=== PATIENT | female | born 1960 | race Caucasian/White ===

== ENCOUNTER 2018-12-06 09:10 | Emergency (ER) | payer MEDICAID ==
[2018-12-06 09:15] VITALS: BMI 37.2
--- NOTE | 2018-12-06 10:44 | ED PDOC ---
HPI: Back Time Seen by Provider: 12/06/18 09:42 Chief Complaint (Nursing): Back Pain Chief Complaint (Provider): Back Pain History Per: Patient History/Exam Limitations: no limitations Onset/Duration Of Symptoms: Other (1 MONTH) Quality Of Discomfort: Sharp (Bilateral) Additional Complaint(s): 58 y/o female presents to the ED complaining of lower back pain thats been ongoing for 1 month. Patient explains the pain as sharp bilaterally radiating anteriorally on to flanks. Patient was seen at [facility] and was started on Valium and Analgesic without relief. Patient has a prescription for CT abdominal and pelvis. Patient denies pain, GI symptoms, urinary symptoms, numbness down the legs, trauma, injuries, or any fevers. 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) Denies: Chronic Kidney Disease - Surgical History Surgical History: Cholecystectomy, Endoscopy - Family History Family History: States: Unknown Family Hx - Living Arrangements Living Arrangements: With Family - Social History Drugs: Denies - Home Medications Home Medications: Ambulatory Orders Medication Instructions Recorded Cholecalciferol (Vitamin D3) 1 cap PO QWK 03/28/16 [Vitamin D3] Levothyroxine [Synthroid] 1 tab PO DAILY 03/28/16 Losartan/Hydrochlorothiazide 1 tab PO DAILY 03/28/16 [Losartan-Hctz 50-12.5 mg Tab] Omeprazole 1 cap PO DAILY 03/28/16 Ibuprofen [Motrin Tab] 600 mg PO Q6 PRN #15 tab 12/06/18 Lidocaine 5% [Lidoderm] 1 ea TD DAILY PRN #5 patch 12/06/18 - Allergies Allergies/Adverse Reactions: Allergies Allergy/AdvReac Type Severity Reaction Status Date / Time acetaminophen [From Percocet] AdvReac VOMITING Verified 03/28/16 09:26 oxycodone HCl [From Percocet] AdvReac VOMITING Verified 03/28/16 09:26 Review of Systems ROS Statement: Except As Marked, All Systems Reviewed And Found Negative Constitutional: Negative for: Fever Musculoskeletal: Positive for: Back Pain Neurological: Negative for: Numbness Physical Exam - Reviewed Nursing Documentation Reviewed: Yes Vital Signs Reviewed: Yes - Physical Exam Appears: Positive for: Well, Non-toxic, No Acute Distress Head Exam: Positive for: ATRAUMATIC, NORMAL INSPECTION, NORMOCEPHALIC Skin: Positive for: Normal Color, Warm, DRY Eye Exam: Positive for: EOMI, Normal appearance, PERRL ENT: Positive for: Normal ENT Inspection Neck: Positive for: Normal, Painless ROM Cardiovascular/Chest: Positive for: Regular Rate, Rhythm. Negative for: Murmur Respiratory: Positive for: Normal Breath Sounds. Negative for: Wheezing Gastrointestinal/Abdominal: Positive for: Normal Exam, Soft. Negative for: Tenderness Back: Positive for: Normal Inspection, L CVA Tenderness, R CVA Tenderness, Other (Hyperintensity bilateral lumbar area ) Extremity: Positive for: Normal ROM Neurological/Psych: Positive for: Awake, Alert, Normal Tone - Laboratory Results Result Diagrams: 12/06/18 11:36 12/06/18 11:36 - ECG O2 Sat by Pulse Oximetry: 96 Medical Decision Making Medical Decision Making: Time:104 Impression: Plan: -CT abdomen and pelvic -BMP -ED urine -CBC -X-ray -Flexeril 10mg PO -Toradol 30mg -Urinalysis 1045: Gave patient Toradol and Flexeril without improvement. X-ray perform unrevealing giving symptoms ongoing for a month. 1425: Patient is feeling better, discussed result in [place] with [email or web address] spanish medical interpreter ([id number]). Will give Lidoderm patch if insurance improve will follow up with Dr. Ayala. Scribe Attestation: Documented by Lexy Jama, acting as a scribe for Rudi Polk III. Provider Scribe Attestation: All medical record entries made by the Scribe were at my direction and personally dictated by me. I have reviewed the chart and agree that the record accurately reflects my personal performance of the history, physical exam, medical decision making, and the department course for this patient. I have also personally directed, reviewed, and agree with the discharge instructions and disposition. Disposition - Clinical Impression Clinical Impression: Back pain - Patient ED Disposition Is Patient to be Admitted: No Counseled Patient/Family Regarding: Studies Performed, Diagnosis, Need For Followup, Rx Given - Disposition Referrals: Arvind Hernandez MD [Family Provider] - Disposition: Routine/Home Disposition Time: 14:15 Condition: STABLE Additional Instructions: Followup with PMD for referral to back specialist or pain management. Return to ER for any worse or new symptoms. Prescriptions: Ibuprofen [Motrin Tab] 600 mg PO Q6 PRN #15 tab PRN Reason: Pain, Moderate (4-7) Lidocaine 5% [Lidoderm] 1 ea TD DAILY PRN #5 patch PRN Reason: Pain, Moderate (4-7) Instructions: Lumbar Muscle Strain (DC) Forms: [facility] (Armenian) Print Language: BELARUSIAN
[2018-12-06] MEDS ORDERED: Iohexol 300 100 ML IJ ONE (11:12)
[2018-12-06] MEDS ORDERED: Sodium Chloride 0.9% 50 ML IV ONE (11:12)
[2018-12-06 11:52] LABS: BASO % 0.6 % (0.0-2.0); EOS # 0.1 K/uL (0.0-0.7); EOS % 1.6 % (0.0-4.0); HEMOGLOBIN 13.5 g/dL (12.0-16.0); LYMPH # 2.5 K/uL (1.0-4.3); LYMPH % 35.3 % (20.0-40.0); MEAN CELL VOLUME 87.2 fl (81.0-99.0); MEAN CORPUSCULAR HEMOGLOBIN 29.3 pg (27.0-31.0); MEAN CORPUSCULAR HGB CONC 33.6 g/dL (33.0-37.0); MEAN PLATELET VOLUME 9.5 fl (7.2-11.7); MONO # 0.5 K/uL (0.0-0.8); MONO % 7.2 % (0.0-10.0); NEUT # 3.9 K/uL (1.8-7.0); NEUT % 55.3 % (50.0-75.0); NRBC % 0.1 % (0.0-0.0); RBC 4.6 Mil/uL (3.80-5.20); RED CELL DISTRIBUTION WIDTH 15.6 % (11.5-14.5); WHITE BLOOD COUNT 7.2 K/uL (4.8-10.8)
[2018-12-06 11:57] LABS: SQUAMOUS EPITHIAL 14 /hpf (0-5); URINE BACTERIA RARE (<OCC); URINE BILIRUBIN NEGATIVE (NEGATIVE); URINE BLOOD SMALL (NEGATIVE); URINE CLARITY CLOUDY (Clear); URINE COLOR YELLOW (YELLOW); URINE GLUCOSE (UA) NEG (NEGATIVE); URINE HYALINE CAST 0-2 /hpf (0-2); URINE LEUKOCYTE ESTERASE NEG Leu/uL (Negative); URINE PROTEIN NEGATIVE (NEGATIVE); URINE UROBILINOGEN 0.2-1.0 mg/dL (0.2-1.0)
[2018-12-06 12:02] LABS: BLOOD UREA NITROGEN 15 mg/dl (7-17); CALCIUM 9.9 mg/dL (8.4-10.2); GFR NON-AFRICAN AMERICAN > 60
--- NOTE | 2018-12-06 13:46 | CT ---
Date of service: 12/06/2018 PROCEDURE: CT Abdomen and Pelvis with contrast HISTORY: Severe flank and back pain 1 month duration. COMPARISON: None. TECHNIQUE: Intravenous contrast dose: 95 cc Omnipaque 350. Radiation dose: Total exam DLP = 907.28 mGy-cm. This CT exam was performed using one or more of the following dose reduction techniques: Automated exposure control, adjustment of the mA and/or kV according to patient size, and/or use of iterative reconstruction technique. FINDINGS: LOWER THORAX: Unremarkable. LIVER: Unremarkable. No gross lesion or ductal dilatation. GALLBLADDER AND BILE DUCTS: Status post cholecystectomy. No abnormality is seen in the gallbladder fossa. Common bile duct dilatation consistent with prior post cholecystectomy state. Maximum diameter 9.7 mm. PANCREAS: Unremarkable. No gross lesion or ductal dilatation. SPLEEN: Unremarkable. ADRENALS: Unremarkable. No mass. KIDNEYS AND URETERS: Unremarkable. No hydronephrosis. No solid mass. Incidental finding(s): 1.3 cm cyst lower pole kidney. VASCULATURE: Unremarkable. No aortic aneurysm. No atherosclerotic calcification or mural plaque present. BOWEL: Constipation without fecal impaction or obstruction. Surgical suture line associated with the distal esophagus and stomach which is otherwise unremarkable. APPENDIX: A normal appendix is visualized in it's entirety. PERITONEUM: Unremarkable. No free fluid. No free air. LYMPH NODES: Unremarkable. No enlarged lymph nodes. BLADDER: Unremarkable. REPRODUCTIVE: Unremarkable. BONES: No acute fracture. OTHER FINDINGS: None. IMPRESSION: No significant or acute findings to account for/ related to the clinical presentation. Additional benign and/or incidental findings described above.
[2018-12-06 15:04] VITALS: BP 134/57; PULSE 72; RESP 16; TEMP 98.2
--- NOTE | 2018-12-06 15:31 | RAD ---
Date of service: 12/06/2018 PROCEDURE: Radiographs of the Lumbar Spine. HISTORY: persistent low back pain [id number] No history of trauma provided. COMPARISON: No prior. TECHNIQUE: 5 views obtained. FINDINGS: BONES: Normal alignment. No listhesis. No fracture. DISC SPACES: Unremarkable. OTHER FINDINGS: None. IMPRESSION: Unremarkable radiographs of the lumbar spine.
[2018-12-06 17:55] VITALS: O2SAT 96
== END 2018-12-06 15:04 | disposition home or self-care (01) ==
LOC: H.ER 09:10
DX: M54.5 Low back pain (principal); E03.9 Hypothyroidism, unspecified; I10 Essential (primary) hypertension; Z86.711 Personal history of pulmonary embolism; Z88.5 Allergy status to narcotic agent; E78.00 Pure hypercholesterolemia, unspecified
CPT/HCPCS: 72114; 74177; 80048; 81003; 85025; 96372; 99283; J1885; Q9967